=== PATIENT | female | born 1990 | race American Indian/Alaskan Native ===

== ENCOUNTER 2018-09-17 09:21 | Emergency (ER) | payer OTHER ==
[2018-09-17 09:27] VITALS: BP 117/83
--- NOTE | 2018-09-17 10:49 | Emergency Department Report ---
ED Dysuria HPI - HPI Chief Complaint: Urogenital-Female Stated Complaint: STD CHECK/CULTURE TEST Time Seen by Provider: 09/17/18 10:00 Duration: months Location of Discomfort: Other Severity: Mild Symptoms: Dysuria: No, Frequency: No, Suprapubic Pain: No, Flank Pain: No, Fever: No, Hematuria: No, Abdominal Pain: No, Previous UTI's: No Other History: 28 yo here to ER concerned she has herpes outbreak. no discharge. no back pain. no fever. bump has been there for months. hx hsv on no meds. ED Review of Systems ROS: Stated complaint: STD CHECK/CULTURE TEST Other details as noted in HPI Comment: All other systems reviewed and negative Skin: as per HPI, lesions ED Past Medical Hx - Past Medical History Previous Medical History?: No - Surgical History Past Surgical History?: No - Family History Family history: no significant - Social History Smoking Status: Never Smoker Substance Use Type: None Dysuria Exam - Exam General: Vital signs noted. No distress. Alert and acting appropriately. Exam: Yes Moist Mucous Membranes, No CVA Tenderness, No Abdominal Tenderness, No Rigidity or Guarding ED Course Vital Signs 09/17/18 09:26 Temperature 97.9 F Pulse Rate 84 Respiratory 16 Rate Blood Pressure 117/83 O2 Sat by Pulse 98 Oximetry ED Medical Decision Making - Medical Decision Making pt concerned she was having HSV break out she has had before 1 lesion on r thigh for 2 months non herpetic educated on safe sex and given referral to obgyn for suppressive treatment Vital Signs 09/17/18 09:26 Temperature 97.9 F Pulse Rate 84 Respiratory 16 Rate Blood Pressure 117/83 O2 Sat by Pulse 98 Oximetry Labs 09/17/18 10:28 Urine Color Yellow Urine Turbidity Clear Urine pH 7.0 Ur Specific [place] 1.014 Urine Protein <15 mg/dl Urine Glucose (UA) Neg Urine Ketones Neg Urine Blood Neg Urine Nitrite Neg Urine Bilirubin Neg Urine Urobilinogen < 2.0 Ur Leukocyte Esterase Neg Urine WBC (Auto) 1.0 Urine RBC (Auto) 2.0 U Epithel Cells (Auto) 3.0 Urine Mucus Few Urine HCG, Qual Negative - Differential Diagnosis ro preg; ro uti; ro herpes Critical care attestation.: If time is entered above; I have spent that time in minutes in the direct care of this critically ill patient, excluding procedure time. ED Disposition Clinical Impression: Rash Disposition: DC-01 TO HOME OR SELFCARE Is pt being admited?: No Does the pt Need Aspirin: No Condition: Stable Instructions: Genital Herpes Simplex (ED) Additional Instructions: urine with no infection preg neg Referrals: FELICIA KAM MD [Primary Care Provider] - 3-5 Days CHIP MCNULTY MD [Staff Physician] - 3-5 Days Time of Disposition: 11:11
[2018-09-17 10:57] LABS: Bilirubin,Urine NEG (Negative); Blood,Urine NEG (Negative); Color,Urine Yellow (Yellow); Mucus,Urine FEW /HPF; Protein,Urine <15 mg/dL mg/dL (Negative); Urobilinogen,Urine < 2.0 mg/dL (<2.0)
[2018-09-17 11:05] LABS: HCG Qualitative,Urine Negative (Negative)
== END 2018-09-17 11:19 | disposition home or self-care (01) ==
LOC: ED 09:21
DX: R21 Rash and other nonspecific skin eruption (principal)
CPT/HCPCS: 81001; 81025; 99283